=== PATIENT | male | born 1990 | race Caucasian/White ===

== ENCOUNTER → 2023-10-17 | Outpatient (CLI) | payer BC | LOC: M RAD 15:22 | PROVIDERS: ATTEND Physician Assistant | DX: M25.541 Pain in joints of right hand (principal) ==

== ENCOUNTER → 2024-01-21 | Outpatient (REF) | payer BC | LOC: M LAB REF 16:58 | PROVIDERS: ATTEND Registered Nurse | DX: R31.9 Hematuria, unspecified (principal) ==

== ENCOUNTER → 2024-01-30 | Outpatient (REF) | payer BC ==
[2024-01-30 18:17] LABS: APPEARANCE, URINE CLEAR (CLEAR); BACTERIA, URINE AUTO NEGATIVE (NEGATIVE); BILIRUBIN, URINE AUTO NEGATIVE (NEGATIVE); BLOOD, URINE BLOOD 2+ (NEGATIVE); COLOR, URINE YELLOW (YELLOW); GLUCOSE, URINE (UA) AUTO NEGATIVE (NEGATIVE); KETONE, URINE AUTO NEGATIVE (NEGATIVE); LEUKOCYTE ESTERASE, URINE AUTO NEGATIVE (NEGATIVE); MUCUS, URINE SMALL (NEGATIVE); NITRITE, URINE AUTO NEGATIVE (NEGATIVE); PROTEIN, URINE AUTO NEGATIVE (NEGATIVE); RBC, URINE AUTO 11 /HPF (0-3); SPECIFIC GRAVITY URINE AUTO 1.016 (1.002-1.035); SQUAMOUS EPITHELIAL CELL UR AU 0 /HPF (0-6); UROBILINOGEN, URINE AUTO 0.2 mg/dL (0.0-2.0); WBC, URINE AUTO 4 /HPF (0-3)
== END ==
LOC: M SMT 16:54
PROVIDERS: ATTEND Physician Assistant
DX: R31.9 Hematuria, unspecified (principal)

== ENCOUNTER → 2024-02-11 | Outpatient (CLI) | payer BC ==
[~2024-02-11] MED LIST: ACET-907 PO; FAMO40TA3 PO; LEXA5TAB13 PO; MULT-40 PO
== END ==
LOC: M PLAIMG 10:05
PROVIDERS: ATTEND Physician Assistant
DX: N20.0 Calculus of kidney (principal)

== ENCOUNTER 2024-02-16 20:32 | Inpatient (IN) | payer BC ==
[~2024-02-16] VITALS: Ht 182.9 cm; Wt 84.1 kg
[2024-02-16 21:55] LABS: BASO # 0.1 10^3/uL (0.0-0.2); BASO % 0.3 % (0.0-1.0); EOS # 0.2 10^3/uL (0.0-0.5); EOS % 1.4 % (0.0-3.0); HEMATOCRIT 41.8 % (42.0-52.0); HEMOGLOBIN 14.6 g/dl (13.5-17.5); LYMPH # 2.3 10^3/uL (1.5-5.0); LYMPH % 14.5 % (24.0-44.0); MEAN CORPUSCULAR HEMOGLOBIN 30.9 pg (27.0-33.0); MEAN CORPUSCULAR HGB CONC 34.9 g/dl (32.0-36.5); MEAN CORPUSCULAR VOLUME 88.4 fl (80.0-96.0); MONO # 1.4 10^3/uL (0.0-0.8); MONO % 9.2 % (2.0-8.0); NEUTROPHILS # 11.5 10^3/uL (1.5-8.5); NEUTROPHILS % 74.3 % (36.0-66.0); PLATELET COUNT, AUTOMATED 307 10^3/uL (150-450); RED BLOOD COUNT 4.73 10^6/uL (4.30-6.10); WHITE BLOOD COUNT 15.5 10^3/uL (4.0-10.0)
[2024-02-16 22:18] LABS: LIPASE 99 U/L (12-53)
[2024-02-16 22:21] LABS: ALBUMIN 4.4 G/DL (3.2-5.2); ALKALINE PHOSPHATASE 94 U/L (46-116); ALT/SGPT 63 U/L (7.0-40); AST/SGOT 35 U/L (<34); BILIRUBIN,DIRECT 0.2 MG/DL (<0.4); BILIRUBIN,TOTAL 1.2 MG/DL (0.3-1.2); BLOOD UREA NITROGEN 8 MG/DL (9-23); CALCIUM LEVEL 9.5 MG/DL (8.5-10.1); CARBON DIOXIDE LEVEL 26 MMOL/L (20-31); CHLORIDE LEVEL 101 MMOL/L (98-107); CREATININE FOR GFR 1.09 MG/DL (0.70-1.30); GLOMERULAR FILTRATION RATE > 60.0 (>60); GLUCOSE, FASTING 101 MG/DL (60-100); POTASSIUM SERUM 4.3 MMOL/L (3.5-5.1); SODIUM LEVEL 135 MMOL/L (136-145); TOTAL PROTEIN 7.9 G/DL (5.7-8.2)
[2024-02-16] MEDS ORDERED: ISOVUE-370 76% 100ML VIAL As Ordered ONE (23:51)
[2024-02-17] MEDS: ACETAMINOPHEN TAB 650MG DOSE (2X325MG) PO ONE (00:08)
[2024-02-17] MEDS: KETOROLAC 30 MG/ML 1ML VIAL IV ONE (00:08)
[2024-02-17] MEDS: ONDANSETRON 4MG 2ML VIAL IV ONE (00:09)
[2024-02-17] MEDS: NS 2,520 ML in IV 1 EA IV ONE (00:24)
[2024-02-17] MEDS: cefTRIAXone SOD 2 GM in D5W MINI-BAG PLUS 50 ML IV ONE (00:34)
[2024-02-17] MEDS ORDERED: FAMO40TA3 PO (01:56)
[2024-02-17] MEDS ORDERED: ACET-907 PO (01:56)
[2024-02-17] MEDS ORDERED: LEXA5TAB13 PO (01:56)
[2024-02-17] MEDS ORDERED: MULT-40 PO (01:56)
[2024-02-17] MEDS ORDERED: HOME MED LIST COMPLETE! XX SCH (02:05)
[2024-02-17] MEDS: ONDANSETRON 4MG 2ML VIAL IV SCH (05:13)
[2024-02-17] MEDS: NS 1,000 ML IV SCH (05:14)
[2024-02-17 05:31] VITALS: BP 116/78; TEMP 98.1; O2SAT 95
[2024-02-17] MEDS: ESCITALOPRAM OXALATE 5MG TABLET (LEXAPRO) PO SCH (06:18)
[2024-02-17 07:29] LABS: BASO % 0.3 % (0.0-1.0); EOS # 0.2 10^3/uL (0.0-0.5); EOS % 1.3 % (0.0-3.0); HEMATOCRIT 35.9 % (42.0-52.0); LYMPH # 2.2 10^3/uL (1.5-5.0); LYMPH % 14.9 % (24.0-44.0); MEAN CORPUSCULAR HEMOGLOBIN 30.9 pg (27.0-33.0); MEAN CORPUSCULAR HGB CONC 33.7 g/dl (32.0-36.5); MEAN CORPUSCULAR VOLUME 91.6 fl (80.0-96.0); MONO # 1.8 10^3/uL (0.0-0.8); MONO % 12.4 % (2.0-8.0); NEUTROPHILS # 10.5 10^3/uL (1.5-8.5); NEUTROPHILS % 70.6 % (36.0-66.0); PLATELET COUNT, AUTOMATED 231 10^3/uL (150-450); RED BLOOD COUNT 3.92 10^6/uL (4.30-6.10); WHITE BLOOD COUNT 14.9 10^3/uL (4.0-10.0)
[2024-02-17 07:30] LABS: HEMOGLOBIN 12.1 g/dl (13.5-17.5)
[2024-02-17 07:52] LABS: BLOOD UREA NITROGEN 7 MG/DL (9-23); CALCIUM LEVEL 8.2 MG/DL (8.5-10.1); CARBON DIOXIDE LEVEL 23 MMOL/L (20-31); CHLORIDE LEVEL 106 MMOL/L (98-107); CREATININE FOR GFR 0.88 MG/DL (0.70-1.30); GLOMERULAR FILTRATION RATE > 60.0 (>60); GLUCOSE, FASTING 111 MG/DL (60-100); POTASSIUM SERUM 4.1 MMOL/L (3.5-5.1); SODIUM LEVEL 139 MMOL/L (136-145)
[2024-02-17] MEDS: PIPERACILLIN/TAZOBACTAM SOD 3.375 GM in D5W MINI-BAG PLUS 50 ML IV SCH (08:08)
[2024-02-17] MEDS: FAMOTIDINE 20 MG TAB PO SCH (08:09)
[2024-02-17] MEDS: ACETAMINOPHEN TAB 650MG DOSE (2X325MG) PO PRN (09:47)
[2024-02-17 10:16] LABS: CHOLESTEROL LEVEL 213 MG/DL (<200); CHOLESTEROL RISK RATIO 7.42 (<5); HDL CHOLESTEROL 28.7 MG/DL (>40); NON-HDL-C 184.3 MG/DL; TRIGLYCERIDES LEVEL 729 MG/DL (<150)
[2024-02-17 10:48] LABS: CA19-9 TUMOR MARKER,CARBOHYDRA 4.2 U/ML (<35.0)
[2024-02-17 10:51] LABS: HEPATITIS C VIRUS ABY INDEX < 0.02 INDEX (<0.8)
[2024-02-17 10:52] LABS: HEPATITIS B CORE ANTIBODY IGM NEGATIVE (NEGATIVE)
[2024-02-17 14:00] VITALS: BP 113/77; TEMP 98.6; O2SAT 95
[2024-02-17] MEDS: KETOROLAC TROMETHAMINE 10 MG TAB PO PRN (16:36)
[2024-02-17 16:45] VITALS: TEMP 99.9
[2024-02-17 17:24] LABS: HEMOGLOBIN A1c 5.1 % (4.0-6.0)
[2024-02-17 18:55] LABS: CHOLESTEROL LEVEL 202 MG/DL (<200); CHOLESTEROL RISK RATIO 7.31 (<5); HDL CHOLESTEROL 27.6 MG/DL (>40); NON-HDL-C 174.4 MG/DL; TRIGLYCERIDES LEVEL 553 MG/DL (<150)
[2024-02-17 19:31] VITALS: BP 113/76; TEMP 99.1; O2SAT 93
[2024-02-17] MEDS: ATORVASTATIN 20 MG TAB PO SCH (20:32)
[2024-02-18] MEDS ORDERED: cefTRIAXone SOD 1 GM in D5W MINI-BAG PLUS 50 ML IV SCH (01:00)
[2024-02-18] MEDS: PERCOCET 5MG/325MG TAB PO PRN (01:27)
[2024-02-18 04:42] VITALS: BP 112/76; TEMP 97.9; O2SAT 97
[2024-02-18 07:31] LABS: HEMATOCRIT 33.3 % (42.0-52.0); HEMOGLOBIN 10.9 g/dl (13.5-17.5); MEAN CORPUSCULAR HEMOGLOBIN 29.9 pg (27.0-33.0); MEAN CORPUSCULAR HGB CONC 32.7 g/dl (32.0-36.5); MEAN CORPUSCULAR VOLUME 91.2 fl (80.0-96.0); PLATELET COUNT, AUTOMATED 216 10^3/uL (150-450); RED BLOOD COUNT 3.65 10^6/uL (4.30-6.10); WHITE BLOOD COUNT 12.9 10^3/uL (4.0-10.0)
[2024-02-18 08:03] LABS: ALBUMIN 2.8 G/DL (3.2-5.2); ALKALINE PHOSPHATASE 63 U/L (46-116); ALT/SGPT 63 U/L (7.0-40); AST/SGOT 40 U/L (<34); BILIRUBIN,TOTAL 1.2 MG/DL (0.3-1.2); BLOOD UREA NITROGEN 8 MG/DL (9-23); CALCIUM LEVEL 8.4 MG/DL (8.5-10.1); CARBON DIOXIDE LEVEL 24 MMOL/L (20-31); CHLORIDE LEVEL 107 MMOL/L (98-107); CHOLESTEROL LEVEL 189 MG/DL (<200); CHOLESTEROL RISK RATIO 7.38 (<5); CREATININE FOR GFR 1.07 MG/DL (0.70-1.30); GLOMERULAR FILTRATION RATE > 60.0 (>60); GLUCOSE, FASTING 91 MG/DL (60-100); HDL CHOLESTEROL 25.6 MG/DL (>40); NON-HDL-C 163.4 MG/DL; POTASSIUM SERUM 3.9 MMOL/L (3.5-5.1); SODIUM LEVEL 136 MMOL/L (136-145); TOTAL PROTEIN 6.1 G/DL (5.7-8.2); TRIGLYCERIDES LEVEL 456 MG/DL (<150)
[2024-02-18] MEDS ORDERED: OMEG12004 PO (11:27)
[2024-02-18] MEDS ORDERED: ATOR40TA75 PO (11:27)
[2024-02-18] MEDS ORDERED: FENO1TAB41 PO (11:57)
[2024-02-18] MEDS ORDERED: LEVO750T14 PO (12:09)
== END 2024-02-18 14:36 | disposition home or self-care (01) | DRG 720 ==
LOC: M ED 20:32 → M ED INP 02-17 04:35 → ENRESERV 02-17 04:53 → M MSPAV 02-17 05:23
PROVIDERS: ADMIT Internal Medicine; ATTEND Internal Medicine
DX: A41.9 Sepsis, unspecified organism (principal); K85.90 Acute pancreatitis without necrosis or infection, unspecified; K21.9 Gastro-esophageal reflux disease without esophagitis; N12 Tubulo-interstitial nephritis, not specified as acute or chronic; N39.0 Urinary tract infection, site not specified; F41.9 Anxiety disorder, unspecified; E78.1 Pure hyperglyceridemia; Z88.0 Allergy status to penicillin; Z88.2 Allergy status to sulfonamides; Z79.899 Other long term (current) drug therapy; N20.0 Calculus of kidney

== ENCOUNTER → 2024-03-01 | Outpatient (REF) | payer BC ==
[~2024-03-01] MED LIST changes: +ATOR40TA75 PO; +FENO1TAB41 PO; +LEVO750T14 PO; +OMEG12004 PO
[2024-03-01 15:28] LABS: APPEARANCE, URINE CLEAR (CLEAR); BACTERIA, URINE AUTO NEGATIVE (NEGATIVE); BILIRUBIN, URINE AUTO NEGATIVE (NEGATIVE); BLOOD, URINE BLOOD 3+ (NEGATIVE); COLOR, URINE STRAW (YELLOW); GLUCOSE, URINE (UA) AUTO NEGATIVE (NEGATIVE); KETONE, URINE AUTO NEGATIVE (NEGATIVE); LEUKOCYTE ESTERASE, URINE AUTO NEGATIVE (NEGATIVE); MUCUS, URINE SMALL (NEGATIVE); NITRITE, URINE AUTO NEGATIVE (NEGATIVE); PROTEIN, URINE AUTO NEGATIVE (NEGATIVE); RBC, URINE AUTO 33 /HPF (0-3); SPECIFIC GRAVITY URINE AUTO 1.006 (1.002-1.035); SQUAMOUS EPITHELIAL CELL UR AU 0 /HPF (0-6); UROBILINOGEN, URINE AUTO 0.2 mg/dL (0.0-2.0); WBC, URINE AUTO 2 /HPF (0-3)
== END ==
LOC: M SMT 15:06
PROVIDERS: ATTEND Physician Assistant
DX: Z01.818 Encounter for other preprocedural examination (principal)

== ENCOUNTER 2024-03-10 07:21 | Day surgery (SDC) | payer BC ==
[~2024-03-10] VITALS: Ht 182.9 cm; Wt 82.4 kg
[2024-03-10] MEDS ORDERED: LR 1,000 ML IV SCH (07:30)
[2024-03-10] MEDS ORDERED: LIDOCAINE 2% 100MG/5ML SDV (FOR ANES.) As Ordered ONE (07:49)
[2024-03-10] MEDS ORDERED: propofoL 200 MG/20 ML VIAL As Ordered ONE (07:49)
[2024-03-10] MEDS ORDERED: ONDANSETRON 4MG 2ML VIAL As Ordered ONE (07:49)
[2024-03-10] MEDS ORDERED: MIDAZOLAM INJ 2MG/2ML VIAL As Ordered ONE (07:49)
[2024-03-10] MEDS ORDERED: fentaNYL 100 MCG/2 ML INJECTION As Ordered ONE (07:49)
[2024-03-10] MEDS: ceFAZolin SOD 2 GM in IV 1 EA IV ONE (09:35)
[2024-03-10] MEDS ORDERED: ePHEDrine SULFATE 25 MG/5 ML(5MG/ML) SYRINGE As Ordered ONE (09:46)
[2024-03-10] MEDS: ISOVUE-300 61% 100ML VIAL As Ordered ONE (10:00)
[2024-03-10] MEDS ORDERED: MORPHINE 2 MG/ML 1ML VIAL IV PRN (10:25)
[2024-03-10] MEDS ORDERED: ONDANSETRON 4MG 2ML VIAL IV PRN (10:25)
[2024-03-10] MEDS ORDERED: fentaNYL 100 MCG/2 ML INJECTION IV PRN (10:25)
[2024-03-10] MEDS ORDERED: PERCOCET 5MG/325MG TAB PO PRN (10:45)
[2024-03-10] MEDS: oxyCODONE 5MG TAB PO PRN (11:06)
[2024-03-10] MEDS ORDERED: OXYB5TAB14 PO (11:12)
[2024-03-10] MEDS: oxyBUTYnin 5 MG TAB PO PRN (11:21)
[2024-03-10 12:17] VITALS: BP 131/79; TEMP 97.2; O2SAT 97
== END 2024-03-10 12:49 | disposition home or self-care (01) ==
LOC: M SDC 07:21
PROVIDERS: ATTEND Urology
DX: N13.2 Hydronephrosis with renal and ureteral calculous obstruction (principal); K21.9 Gastro-esophageal reflux disease without esophagitis; F41.9 Anxiety disorder, unspecified; Z79.899 Other long term (current) drug therapy; Z88.0 Allergy status to penicillin; Z88.2 Allergy status to sulfonamides
CPT/HCPCS: 52332; 52352; 76000; 82365; C1769; C1894; C2617; J0690; J1100; J2250; J2405; J3010; Q9967

== ENCOUNTER → 2024-03-22 | Outpatient (CLI) | payer BC ==
[~2024-03-22] MED LIST changes: +FENO1CAP16 PO; +OMEG1CAP85 PO; +OXYB5TAB14 PO; +OXYC1TAB23
[2024-03-22 17:25] LABS: HEMATOCRIT 38.6 % (42.0-52.0); HEMOGLOBIN 12.8 g/dl (13.5-17.5); MEAN CORPUSCULAR HGB CONC 33.2 g/dl (32.0-36.5); MEAN CORPUSCULAR VOLUME 90.4 fl (80.0-96.0); PLATELET COUNT, AUTOMATED 310 10^3/uL (150-450); RED BLOOD COUNT 4.27 10^6/uL (4.30-6.10)
[2024-03-22 17:27] LABS: BLOOD UREA NITROGEN 15 MG/DL (9-23); CALCIUM LEVEL 9.5 MG/DL (8.5-10.1); CARBON DIOXIDE LEVEL 27 MMOL/L (20-31); CHLORIDE LEVEL 105 MMOL/L (98-107); CREATININE FOR GFR 1.17 MG/DL (0.70-1.30); GLOMERULAR FILTRATION RATE > 60.0 (>60); GLUCOSE, FASTING 98 MG/DL (60-100); POTASSIUM SERUM 4.9 MMOL/L (3.5-5.1); SODIUM LEVEL 138 MMOL/L (136-145)
== END ==
LOC: M WUC 13:00
PROVIDERS: ATTEND Urology
DX: Z01.818 Encounter for other preprocedural examination (principal); N20.0 Calculus of kidney

== ENCOUNTER 2024-04-01 06:13 | Day surgery (SDC) | payer BC ==
[~2024-04-01] VITALS: Ht 182.9 cm; Wt 81.7 kg
[2024-04-01] MEDS ORDERED: LR 1,000 ML IV SCH ×2 (06:20→08:45)
[2024-04-01] MEDS: ceFAZolin SOD 2 GM in IV 1 EA IV ONE (07:00)
[2024-04-01] MEDS ORDERED: propofoL 200 MG/20 ML VIAL As Ordered ONE (07:01)
[2024-04-01] MEDS ORDERED: propofoL 500 MG/50 ML VIAL As Ordered ONE (07:01)
[2024-04-01] MEDS ORDERED: dexmedeTOMIDine (4MCG/ML)200MCG/50ML BTL (PRECEDEX) As Ordered ONE (07:04)
[2024-04-01] MEDS ORDERED: MIDAZOLAM INJ 2MG/2ML VIAL As Ordered ONE (07:08)
[2024-04-01] MEDS ORDERED: OXYC1TAB23 PO (07:38)
[2024-04-01] MEDS ORDERED: FLOM0.4C39 PO (07:38)
[2024-04-01] MEDS ORDERED: ACETAMINOPHEN 1000MG 100ML IV BAG As Ordered ONE (07:59)
[2024-04-01] MEDS: LIDOCAINE 2% 5ML JELLY UROJET As Ordered ONE (08:05)
[2024-04-01] MEDS ORDERED: KETOROLAC 60MG 2ML VIAL As Ordered ONE (08:07)
[2024-04-01] MEDS ORDERED: ONDANSETRON 4MG 2ML VIAL IV PRN (08:45)
[2024-04-01] MEDS ORDERED: MORPHINE 2 MG/ML 1ML VIAL IV PRN (08:45)
[2024-04-01] MEDS ORDERED: fentaNYL 100 MCG/2 ML INJECTION IV PRN (08:45)
[2024-04-01] MEDS ORDERED: oxyCODONE 5MG TAB PO PRN (08:45)
[2024-04-01] MEDS ORDERED: PERCOCET 5MG/325MG TAB PO PRN (09:15)
[2024-04-01 09:45] VITALS: BP 107/68; TEMP 97.1; O2SAT 98
== END 2024-04-01 10:14 | disposition home or self-care (01) ==
LOC: M SDC 06:13
PROVIDERS: ATTEND Urology
DX: N20.0 Calculus of kidney (principal); E78.00 Pure hypercholesterolemia, unspecified; K21.9 Gastro-esophageal reflux disease without esophagitis; Z79.899 Other long term (current) drug therapy; Z87.11 Personal history of peptic ulcer disease; Z88.2 Allergy status to sulfonamides; Z88.0 Allergy status to penicillin; F41.9 Anxiety disorder, unspecified
CPT/HCPCS: 50590; 74018; J0131; J0690; J1885; J2250

== ENCOUNTER → 2024-04-22 | Outpatient (CLI) | payer BC ==
[~2024-04-22] MED LIST changes: +FLOM0.4C39 PO; +OXYC1TAB23 PO
== END ==
LOC: M RAD 11:52
PROVIDERS: ATTEND Urology
DX: N20.0 Calculus of kidney (principal)

== ENCOUNTER → 2024-06-04 | Outpatient (CLI) | payer BC ==
[~2024-06-04] MED LIST changes: +OMEG-28 PO; -OMEG1CAP85 PO
[2024-06-04 17:30] LABS: ALBUMIN 4.3 G/DL (3.2-5.2); ALKALINE PHOSPHATASE 92 U/L (46-116); ALT/SGPT 46 U/L (7.0-40); AST/SGOT 26 U/L (<34); BILIRUBIN,TOTAL 0.6 MG/DL (0.3-1.2); BLOOD UREA NITROGEN 14 MG/DL (9-23); CALCIUM LEVEL 9.7 MG/DL (8.5-10.1); CARBON DIOXIDE LEVEL 29 MMOL/L (20-31); CHLORIDE LEVEL 105 MMOL/L (98-107); CHOLESTEROL LEVEL 268 MG/DL (<200); CHOLESTEROL RISK RATIO 7.76 (<5); CREATININE FOR GFR 1.42 MG/DL (0.70-1.30); GLOMERULAR FILTRATION RATE > 60.0 (>60); GLUCOSE, FASTING 89 MG/DL (60-100); HDL CHOLESTEROL 34.5 MG/DL (>40); NON-HDL-C 233.5 MG/DL; POTASSIUM SERUM 4.7 MMOL/L (3.5-5.1); SODIUM LEVEL 138 MMOL/L (136-145); TOTAL PROTEIN 7.6 G/DL (5.7-8.2); TRIGLYCERIDES LEVEL 800 MG/DL (<150)
== END ==
LOC: M WUC 13:04
PROVIDERS: ATTEND Registered Nurse
DX: E78.2 Mixed hyperlipidemia (principal)

== ENCOUNTER → 2024-06-23 | Outpatient (CLI) | payer BC ==
[2024-06-23 19:20] LABS: BASO # 0.1 10^3/uL (0.0-0.2); BASO % 0.7 % (0.0-1.0); EOS # 0.2 10^3/uL (0.0-0.5); EOS % 2.9 % (0.0-3.0); HEMOGLOBIN 14.2 g/dl (13.5-17.5); LYMPH # 2.8 10^3/uL (1.5-5.0); LYMPH % 36.6 % (24.0-44.0); MEAN CORPUSCULAR HEMOGLOBIN 29.9 pg (27.0-33.0); MEAN CORPUSCULAR VOLUME 90.5 fl (80.0-96.0); MONO # 0.8 10^3/uL (0.0-0.8); MONO % 10.7 % (2.0-8.0); NEUTROPHILS # 3.7 10^3/uL (1.5-8.5); NEUTROPHILS % 48.7 % (36.0-66.0); PLATELET COUNT, AUTOMATED 341 10^3/uL (150-450); RED BLOOD COUNT 4.75 10^6/uL (4.30-6.10); WHITE BLOOD COUNT 7.5 10^3/uL (4.0-10.0)
[2024-06-23 19:27] LABS: FERRITIN 206.8 NG/ML (10.5-307.3)
[2024-06-23 19:28] LABS: PERCENT SATURATION 21.6 % (19.7-50.0)
[2024-06-23 19:33] LABS: FOLATE 17.87 NG/ML (>5.4)
== END ==
LOC: M WUC 15:28
PROVIDERS: ATTEND Registered Nurse
DX: D50.9 Iron deficiency anemia, unspecified (principal)

== ENCOUNTER → 2024-09-22 | Outpatient (REF) | payer BC ==
[~2024-09-22] MED LIST changes: -LEVO750T14 PO; +LEVO75TAB PO
[2024-09-22 10:49] LABS: ALBUMIN 4.1 G/DL (3.2-5.2); ALKALINE PHOSPHATASE 88 U/L (40-129); ALT/SGPT 75 U/L (7.0-40); AST/SGOT 44 U/L (<34); BILIRUBIN,TOTAL 0.5 MG/DL (0.3-1.2); BLOOD UREA NITROGEN 15 MG/DL (9-23); CALCIUM LEVEL 10.2 MG/DL (8.5-10.1); CARBON DIOXIDE LEVEL 27 MMOL/L (20-31); CHLORIDE LEVEL 105 MMOL/L (98-107); CHOLESTEROL LEVEL 239 MG/DL (<200); CHOLESTEROL RISK RATIO 6.39 (<5); CREATININE FOR GFR 1.23 MG/DL (0.70-1.30); GLOMERULAR FILTRATION RATE > 60.0 (>60); GLUCOSE, FASTING 90 MG/DL (60-100); HDL CHOLESTEROL 37.4 MG/DL (>40); NON-HDL-C 201.6 MG/DL; POTASSIUM SERUM 4.7 MMOL/L (3.5-5.1); SODIUM LEVEL 140 MMOL/L (136-145); TOTAL PROTEIN 7.8 G/DL (5.7-8.2); TRIGLYCERIDES LEVEL 645 MG/DL (<150)
== END ==
LOC: M LABWUC 10:02
PROVIDERS: ATTEND Registered Nurse
DX: E78.2 Mixed hyperlipidemia (principal)

== ENCOUNTER → 2024-10-27 | Outpatient (CLI) | payer BC | LOC: M WUC 12:06 | PROVIDERS: ATTEND Urology | DX: N20.0 Calculus of kidney (principal) ==

== ENCOUNTER → 2024-11-29 | Outpatient (REF) | payer BC ==
[2024-11-29 17:54] LABS: ALKALINE PHOSPHATASE 76 U/L (40-129); ALT/SGPT 72 U/L (7.0-40); AST/SGOT 54 U/L (<34); BILIRUBIN,TOTAL 0.5 MG/DL (0.3-1.2); BLOOD UREA NITROGEN 13 MG/DL (9-23); CALCIUM LEVEL 9.3 MG/DL (8.5-10.1); CARBON DIOXIDE LEVEL 26 MMOL/L (20-31); CHLORIDE LEVEL 106 MMOL/L (98-107); CREATININE FOR GFR 1.11 MG/DL (0.70-1.30); GLOMERULAR FILTRATION RATE > 60.0 (>60); GLUCOSE, FASTING 93 MG/DL (60-100); POTASSIUM SERUM 4.4 MMOL/L (3.5-5.1); SODIUM LEVEL 140 MMOL/L (136-145); TOTAL PROTEIN 7.6 G/DL (5.7-8.2)
== END ==
LOC: M LAB REF 16:16 → M LABWUC 16:16
PROVIDERS: ATTEND Registered Nurse
DX: R11.2 Nausea with vomiting, unspecified (principal)

== ENCOUNTER 2024-12-02 14:24 | Emergency (ER) | payer BC ==
[~2024-12-02] VITALS: Ht 182.9 cm; Wt 84.1 kg
[2024-12-02] MEDS ORDERED: ATOR1TAB21 PO (14:38)
[2024-12-02] MEDS ORDERED: PANT40TA29 PO (14:38)
[2024-12-02] MEDS ORDERED: METO5TAB2 PO (14:38)
[2024-12-02 15:10] LABS: BASO # 0.1 10^3/uL (0.0-0.2); BASO % 0.7 % (0.0-1.0); EOS # 0.4 10^3/uL (0.0-0.5); EOS % 3.9 % (0.0-3.0); HEMATOCRIT 41.2 % (42.0-52.0); HEMOGLOBIN 14.6 g/dl (13.5-17.5); LYMPH # 3.6 10^3/uL (1.5-5.0); LYMPH % 39.5 % (24.0-44.0); MEAN CORPUSCULAR HEMOGLOBIN 30.7 pg (27.0-33.0); MEAN CORPUSCULAR HGB CONC 35.4 g/dl (32.0-36.5); MEAN CORPUSCULAR VOLUME 86.6 fl (80.0-96.0); MONO # 0.8 10^3/uL (0.0-0.8); MONO % 8.9 % (2.0-8.0); NEUTROPHILS # 4.3 10^3/uL (1.5-8.5); NEUTROPHILS % 46.7 % (36.0-66.0); PLATELET COUNT, AUTOMATED 401 10^3/uL (150-450); RED BLOOD COUNT 4.76 10^6/uL (4.30-6.10); WHITE BLOOD COUNT 9.2 10^3/uL (4.0-10.0)
[2024-12-02 15:41] LABS: LIPASE 41 U/L (12-53)
[2024-12-02 15:44] LABS: ALKALINE PHOSPHATASE 88 U/L (40-129); ALT/SGPT 91 U/L (7.0-40); AST/SGOT 67 U/L (<34); BILIRUBIN,DIRECT 0.2 MG/DL (<0.4); BILIRUBIN,TOTAL 0.6 MG/DL (0.3-1.2); BLOOD UREA NITROGEN 13 MG/DL (9-23); CALCIUM LEVEL 9.4 MG/DL (8.5-10.1); CARBON DIOXIDE LEVEL 24 MMOL/L (20-31); CHLORIDE LEVEL 104 MMOL/L (98-107); GLOMERULAR FILTRATION RATE > 60.0 (>60); GLUCOSE, FASTING 114 MG/DL (60-100); POTASSIUM SERUM 3.7 MMOL/L (3.5-5.1); SODIUM LEVEL 139 MMOL/L (136-145); TOTAL PROTEIN 7.7 G/DL (5.7-8.2)
[2024-12-02] MEDS ORDERED: ISOVUE-370 76% 100ML VIAL As Ordered ONE (18:24)
[2024-12-02 20:47] VITALS: BP 118/73; TEMP 98.8; O2SAT 98
[2024-12-02] MEDS ORDERED: FIDA200TA PO (20:48)
[2024-12-02] MEDS: FIDAXOMICIN 200 MG TAB (DIFICID) PO ONE (21:11)
== END 2024-12-02 21:12 | disposition home or self-care (01) ==
LOC: M ED 14:24
DX: A04.72 Enterocolitis due to Clostridium difficile, not specified as recurrent (principal); K76.0 Fatty (change of) liver, not elsewhere classified; K21.9 Gastro-esophageal reflux disease without esophagitis; E78.5 Hyperlipidemia, unspecified; F41.9 Anxiety disorder, unspecified; Z87.442 Personal history of urinary calculi; Z88.0 Allergy status to penicillin; Z88.2 Allergy status to sulfonamides
CPT/HCPCS: 36415; 74177; 76705; 80048; 80076; 83690; 85025; 87324; 87507; 99284; Q9967

== ENCOUNTER → 2025-03-01 | Outpatient (CLI) | payer BC ==
[~2025-03-01] MED LIST changes: +ATOR1TAB21 PO; +FIDA200TA PO; -FLOM0.4C39 PO; +METO5TAB2 PO; +PANT40TA29 PO; +TAMS-18 PO
== END ==
LOC: M EKG 08:59
PROVIDERS: ATTEND Registered Nurse
DX: R00.2 Palpitations (principal)

== ENCOUNTER → 2025-03-01 | Outpatient (CLI) | payer BC ==
[~2025-03-01] MED LIST changes: +FLOM0.4C39 PO; -TAMS-18 PO
[2025-03-01 12:59] LABS: BASO % 0.5 % (0.0-1.0); EOS # 0.3 10^3/uL (0.0-0.5); EOS % 3.3 % (0.0-3.0); HEMATOCRIT 40.4 % (42.0-52.0); HEMOGLOBIN 13.4 g/dl (13.5-17.5); LYMPH # 2.8 10^3/uL (1.5-5.0); MEAN CORPUSCULAR HEMOGLOBIN 30.5 pg (27.0-33.0); MEAN CORPUSCULAR HGB CONC 33.2 g/dl (32.0-36.5); MEAN CORPUSCULAR VOLUME 91.8 fl (80.0-96.0); MONO # 0.8 10^3/uL (0.0-0.8); MONO % 9.8 % (2.0-8.0); NEUTROPHILS # 3.8 10^3/uL (1.5-8.5); NEUTROPHILS % 49.7 % (36.0-66.0); PLATELET COUNT, AUTOMATED 357 10^3/uL (150-450); WHITE BLOOD COUNT 7.7 10^3/uL (4.0-10.0)
[2025-03-01 13:02] LABS: C REACTIVE PROTEIN QUANTITATIV < 0.50 MG/DL (<1.0); CPK CREATINE PHOSPHOKINASE 70 U/L (46-171); IRON (FE) 94 UG/DL (65-175)
[2025-03-01 13:04] LABS: FERRITIN 354.3 NG/ML (10.5-307.3)
[2025-03-01 13:11] LABS: ALBUMIN 4.4 G/DL (3.2-5.2); ALKALINE PHOSPHATASE 75 U/L (40-129); ALT/SGPT 102 U/L (7.0-40); AST/SGOT 67 U/L (<34); BILIRUBIN,TOTAL 0.6 MG/DL (0.3-1.2); BLOOD UREA NITROGEN 16 MG/DL (9-23); CALCIUM LEVEL 10.2 MG/DL (8.5-10.1); CARBON DIOXIDE LEVEL 26 MMOL/L (20-31); CHLORIDE LEVEL 106 MMOL/L (98-107); CHOLESTEROL LEVEL 217 MG/DL (<200); CHOLESTEROL RISK RATIO 6.53 (<5); CREATININE FOR GFR 1.13 MG/DL (0.70-1.30); GLOMERULAR FILTRATION RATE 87.5 (>60); GLUCOSE, FASTING 89 MG/DL (60-100); HDL CHOLESTEROL 33.2 MG/DL (>40); NON-HDL-C 183.8 MG/DL; POTASSIUM SERUM 4.5 MMOL/L (3.5-5.1); SODIUM LEVEL 142 MMOL/L (136-145); TOTAL IRON BINDING CAPACITY 392 UG/DL (250-425); TOTAL PROTEIN 7.9 G/DL (5.7-8.2); TRIGLYCERIDES LEVEL 462 MG/DL (<150)
[2025-03-01 13:13] LABS: ERYTHROCYTE SEDIMENTATION RATE 15 mm/hr (0-15)
== END ==
LOC: M WUC 09:43
PROVIDERS: ATTEND Registered Nurse
DX: R07.9 Chest pain, unspecified (principal); R00.2 Palpitations

== ENCOUNTER → 2025-07-12 | Outpatient (REF) | payer BC ==
[~2025-07-12] MED LIST changes: -FENO1TAB41 PO; +FENO40TA4 PO; -FLOM0.4C39 PO; +TAMS-18 PO
[2025-07-12 15:30] LABS: ALT/SGPT 142 U/L (7.0-40); AST/SGOT 99 U/L (<34); CALCIUM LEVEL 10.3 MG/DL (8.5-10.1); CARBON DIOXIDE LEVEL 25 MMOL/L (20-31); CHLORIDE LEVEL 105 MMOL/L (98-107); CHOLESTEROL LEVEL 230 MG/DL (<200); CHOLESTEROL RISK RATIO 7.21 (<5); CREATININE FOR GFR 1.28 MG/DL (0.70-1.30); GLOMERULAR FILTRATION RATE 75.3 (>60); NON-HDL-C 198.1 MG/DL; POTASSIUM SERUM 4.6 MMOL/L (3.5-5.1); SODIUM LEVEL 142 MMOL/L (136-145); TRIGLYCERIDES LEVEL 441 MG/DL (<150)
== END ==
LOC: M LAB REF 14:25 → M LABWUC 14:25
PROVIDERS: ATTEND Registered Nurse
DX: E78.2 Mixed hyperlipidemia (principal)

== ENCOUNTER → 2025-10-27 | Outpatient (CLI) | payer BC ==
[2025-10-27 13:13] LABS: BASO # 0.1 10^3/uL (0.0-0.2); BASO % 0.7 % (0.0-1.0); EOS # 0.2 10^3/uL (0.0-0.5); EOS % 2.7 % (0.0-3.0); LYMPH # 3.1 10^3/uL (1.5-5.0); LYMPH % 37.3 % (24.0-44.0); MONO # 0.9 10^3/uL (0.0-0.8); MONO % 10.7 % (2.0-8.0); NEUTROPHILS # 3.9 10^3/uL (1.5-8.5); NEUTROPHILS % 48.0 % (36.0-66.0); PLATELET COUNT, AUTOMATED 379 10^3/uL (150-450)
[2025-10-27 13:48] LABS: ALT/SGPT 101 U/L (7.0-40); AST/SGOT 97 U/L (<34); CALCIUM LEVEL 9.8 MG/DL (8.5-10.1); CARBON DIOXIDE LEVEL 25 MMOL/L (20-31); CHLORIDE LEVEL 105 MMOL/L (98-107); CHOLESTEROL LEVEL 226 MG/DL (<200); CHOLESTEROL RISK RATIO 8.93 (<5); CREATININE FOR GFR 1.31 MG/DL (0.70-1.30); GLOMERULAR FILTRATION RATE 73.3 (>60); NON-HDL-C 200.7 MG/DL; POTASSIUM SERUM 4.4 MMOL/L (3.5-5.1); SODIUM LEVEL 142 MMOL/L (136-145); TRIGLYCERIDES LEVEL 472 MG/DL (<150)
[2025-10-27 14:15] LABS: ESTIMATED AVERAGE GLUCOSE 103.0 MG/DL (60-110)
== END ==
LOC: M WUC 08:03
PROVIDERS: ATTEND Registered Nurse
DX: E78.2 Mixed hyperlipidemia (principal)